=== PATIENT | female | born 1995 | race Caucasian/White ===

== ENCOUNTER 2017-06-26 14:25 | Emergency (ER) | payer MEDICAID, OTHER ==
[~2017-06-26] VITALS: Ht 152.4 cm; Wt 78.5 kg
[~2017-06-26 14:25] MED LIST: DENIES
[2017-06-26 14:27] VITALS: Ht 152.4 cm; Wt 78.5 kg
[2017-06-26] MEDS ORDERED: IBUP-1542 PO (15:23)
[2017-06-26] MEDS ORDERED: ALBU18HF INHALATION (15:23)
[2017-06-26] MEDS ORDERED: AZIT250T94 PO (15:23)
--- NOTE | 2017-06-26 15:27 | ERD ---
ER Documentation Chief Complaint Date/Time DATE: 06/26/17 TIME: 15:26 Chief Complaint SORE THROAT X 3 DAYS WITH FEVER HPI This 22-year-old female complains of productive cough and fever for last 3 days. She has a remote history of asthma. She has vomiting, chest pain, abdominal pain, neck stiffness, rashes. ROS All systems reviewed and are negative except as per history of present illness. Medications Home Meds Active Scripts Azithromycin* (Zithromax*) 250 Mg Tablet, 250 MG PO .ZPACK DIRECTED, #6 TAB TAKE 500 MG (2 TABS) THE FIRST DAY THEN 250 MG (1 TAB) DAYS 2-5 Prov:FARAZ CORADO MD 06/26/17 Albuterol Sulfate* (Ventolin HFA*) 18 Gm Hfa.aer.ad, 2 PUFF INHALATION Q4H, #1 INHALER Prov:FARAZ CORADO MD 06/26/17 Ibuprofen* (Motrin*) 600 Mg Tab, 600 MG PO Q6, #15 TAB Prov:FARAZ CORADO MD 06/26/17 Reported Medications [Denies] No Conflict Check 02/04/10 Allergies Allergies: Coded Allergies: No Known Drug Allergies (Verified Allergy, Mild, 02/04/10) PMhx/Soc History of Surgery: Yes (TONSILLECTOMY) Hx Neurological Disorder: No Hx Respiratory Disorders: No Hx Cardiac Disorders: No Hx Miscellaneous Medical Probl: No Hx Alcohol Use: No Hx Substance Use: No Hx Tobacco Use: No Smoking Status: Never smoker Physical Exam Vitals Vital Signs Date Time Temp Pulse Resp B/P Pulse Ox O2 Delivery O2 Flow Rate FiO2 06/26/17 14:27 98.8 100 18 136/70 100 Physical Exam Const: []Alert, [id number] per Head: Atraumatic Eyes: Normal Conjunctiva ENT: Normal External Ears, Nose and Mouth.TMs and oropharynx normal. Neck: Full range of motion..~ No meningismus. Resp: Clear to auscultation bilaterally. Slight forced wheeze without significant wheeze at rest no rales or retractions. Cardio: Regular rate and rhythm, no murmurs Abd: Soft, non tender, non distended. Normal bowel sounds Skin: No petechiae or rashes Back: No midline or flank tenderness Ext: No cyanosis, or edema Neur: Awake and alert Psych: Normal Mood and Affect Results 24 hrs Current Medications Medications (Trade) Dose Ordered Sig/Jesus Route PRN Reason Start Time Stop Time Status Last Admin Dose Admin Ibuprofen (Motrin) 600 mg ONCE ONCE PO 06/26/17 15:30 06/26/17 15:31 Dexamethasone (Decadron) 8 mg ONCE ONCE PO 06/26/17 15:30 06/26/17 15:31 Procedures/MDM Patient presents with URI symptoms for the last 4 days with fever at home productive cough. There is some mild wheezing on exam. There is no evidence of respiratory distress or hypoxemia. She will be treated with Zithromax, Decadron 8 mg by mouth here and Ventolin and fever control at home. The patient was stable with no new complaints during the ER course. Clinically, there is no current evidence to suggest meningitis, sepsis, acute abdomen, pneumonia, acute coronary syndrome, pulmonary embolism, or any other emergent condition appearing to require further evaluation or hospitalization. The patient should certainly return for any new or worsening symptoms per the aftercare instructions. They should otherwise follow-up with her primary care doctor for reevaluation this week. Departure Diagnosis: Primary Impression: URI, acute Condition: Stable Patient Instructions: Bronchitis With Wheezing (Adult) Additional Instructions: Recheck for new or worsening symptoms or primary care doctor. FARAZ CORADO MD Jun 26, 2017 15:27
[2017-06-26] MEDS ORDERED: IBUPROFEN 600 MG TAB PO ONE (15:30)
[2017-06-26] MEDS ORDERED: DEXAMETHASONE 4 MG TAB PO ONE (15:30)
== END 2017-06-26 16:00 | disposition home or self-care (01) ==
LOC: FTE 14:25
DX: J06.9 Acute upper respiratory infection, unspecified (principal); J45.909 Unspecified asthma, uncomplicated
CPT/HCPCS: Z7502; Z7610; 99284

== ENCOUNTER 2017-12-03 09:46 | Emergency (ER) | END 2017-12-03 14:02 | disposition home or self-care (01) ==

== ENCOUNTER 2018-07-21 13:54 | Emergency (ER) | END 2018-07-21 16:32 | disposition home or self-care (01) ==